=== PATIENT | female | born 1985 | race Caucasian/White ===

== ENCOUNTER 2021-02-15 01:23 | Outpatient (CLI) | payer OTHER, SELFPAY ==
--- NOTE | 2021-02-15 10:50 | DI.RAD_ITS ---
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 TECHNIQUE: 2D digital imaging was performed. COMPARISON: No exams were available for comparison FINDINGS: Heart size is normal. The mediastinum is not widened. Lungs are clear. No infiltrates nor pleural effusions. There is a cyst 6 millimeter calcified granuloma in the left lower lobe. There is a subtle noncalcif ied nodular density measuring 10 millimeters over the lower right lower. This may represent a nipple shadow. IMPRESSION: Lung nodules as above. Recommend repeating the frontal view with bilateral metallic nipple markers i n place. DATA REPOSITORY: RADIATION DOSE DELIVERED:
== END 2021-02-15 01:43 ==
PROVIDERS: Visit Provider Orthopaedic Surgery
DX: R91.8 Other nonspecific abnormal finding of lung field (principal); J98.4 Other disorders of lung
CPT/HCPCS: 94060; 71046

== ENCOUNTER 2021-02-15 03:25 | Outpatient (CLI) | payer OTHER, SELFPAY ==
[2021-02-15 10:42] LABS: HCT 39.4 % (36.0-46.0); HGB 12.5 g/dL (11.2-15.7); MCH 29.1 pg (27.0-33.0); MCHC 31.7 % (32.0-36.0); MCV 91.8 fL (80-95); MPV 9.4 fL (8.0-11.0); Platelet Count 214 10^3/uL (130-400); RBC 4.29 10^6/uL (3.93-5.22); RDW 13.5 % (11.7-14.6); RDW-SD 45.8 fL
== END 2021-02-15 03:26 | disposition home or self-care (01) ==
LOC: LBO 03:25
PROVIDERS: Orthopaedic Surgery; Visit Provider Chiropractor
DX: K13.4 Granuloma and granuloma-like lesions of oral mucosa (principal)
CPT/HCPCS: 36415; 85027

== ENCOUNTER 2021-02-15 11:15 | Outpatient (CLI) | payer OTHER, SELFPAY ==
[2021-02-15] MEDS: Albuterol HFA 18 GM 200 PUFF INH IH (13:16)
[2021-02-15] MEDS: Inhaler, Assist Device 1 EACH MC (13:16)
--- NOTE | 2021-02-15 13:41 | W.PFT ---
Date of service: 02/15/21 Time of Service: 11:29 Pulmonary Function Test Result Interpretation Spirometry: No evidence of obstructive airways disease, no bronchodilator response Impression Normal spirometry Clinical Correlation therefore is recommended.
== END 2021-02-15 11:16 | disposition home or self-care (01) ==
LOC: RT 11:19
PROVIDERS: Visit Provider Orthopaedic Surgery
DX: R69 Illness, unspecified (principal)
CPT/HCPCS: 94060